=== PATIENT | male | born 1945 | race Caucasian/White ===

== ENCOUNTER 2017-07-14 08:36 | Outpatient (CLI) | payer MEDICARE | END 2017-07-14 08:37 | disposition home or self-care (01) | LOC: BICMRI 08:36 | PROVIDERS: ATTEND Family Medicine | DX: M54.5 Low back pain (principal); M48.061 Spinal stenosis, lumbar region without neurogenic claudication; M99.83 Other biomechanical lesions of lumbar region; M51.26 Other intervertebral disc displacement, lumbar region; M47.896 Other spondylosis, lumbar region | CPT/HCPCS: 72148 ==

== ENCOUNTER 2017-09-09 13:42 | Emergency (ER) | payer MEDICARE ==
--- NOTE | 2017-09-09 15:00 | RAD ---
FOUR VIEWS LUMBAR SPINE: INDICATION: Low back pain. COMPARISON: Prior exam dated 06/23/17. FINDINGS: There are 5 lumbar-type vertebrae. There is mild levoscoliosis of the stable that is stable. The mu ltilevel mild degenerative disk disease is stable. No malalignment is demonstrated. No acute fractu re is noted. Aortobiiliac endograft stent is visualized. There are scattered vascular calcification s. IMPRESSION: Stable mild to moderate multilevel spondylosis of the lumbar spine. POS: [facility]
[2017-09-09 16:29] LABS: #Eosinphils 0.3 thou/uL (0.0-0.7); #Lymphocytes 2.1 thou/uL (1.20-3.40); #Monocytes 0.7 thou/uL (0.11-0.59); #Neutrophils 9.2 thou/uL (1.40-6.50); %Basophils 0.3 % (0.0-1.0); %Eosinophils 2.4 % (0.0-10.0); %Lymphocytes 17.2 % (21.0-51.0); %Monocytes 5.5 % (0.0-10.0); %Neutrophils 74.5 % (42.0-75.0); Hemoglobin 15.6 g/dL (14.0-18.0); Mean Corpuscular HGB CONC 34.4 g/dL (32.0-36.0); Mean Corpuscular Hemoglobin 31.5 pg (27.0-31.0); Mean Corpuscular Volume 91.7 fL (78.0-98.0); Platelet Count 193 thou/uL (130-400); RBC Distribution Width 13.2 % (11.5-14.5); Red Blood Cell (RBC) Count 4.95 mill/uL (4.70-6.10); White Blood Cell (WBC) Count 12.4 thou/uL (4.8-10.8)
[2017-09-09 16:49] LABS: ALT (SGPT) 18 U/L (8-55); AST (SGOT) 15 U/L (5-34); Albumin 4.2 g/dL (3.4-4.8); Alkaline Phosphatase 81 U/L (40-150); Anion Gap 12 mmol/L (10-20); BUN (Urea Nitrogen) 23 mg/dL (8.4-25.7); Bilirubin, Total 0.8 mg/dL (0.2-1.2); Calc. Creatinine Clearance 0 mL/min (70-130); Calcium 9.6 mg/dL (7.8-10.44); Carbon Dioxide 27 mmol/L (23-31); Chloride 104 mmol/L (98-107); Estimated GFR-MDRD 66; Globulin 2.6 g/dL (2.4-3.5); Glucose 90 mg/dL (83-110); Potassium 4.6 mmol/L (3.5-5.1); Protein, Total 6.8 g/dL (5.8-8.1); Sodium 138 mmol/L (136-145)
--- NOTE | 2017-09-09 19:21 | MRI ---
MRI OF THE LUMBAR SPINE WITH AND WITHOUT CONTRAST: 09/09/17 HISTORY: Acute left leg weakness. Urinary incontinence. History of lung cancer. COMPARISON: 07/14/17. TECHNIQUE: MRI of the lumbar spine is performed with and without intravenous gadolinium administration. Multiseq uential, multiplanar imaging is performed. FINDINGS: Appropriate T1 marrow signal intensity of the lumbar vertebrae. Lumbar spine vertebral body height is maintained. There is no fracture. There are type I and type II Modic changes involving the posterior disc space at L4-5. No significant STIR hyperintensities to suggest vertebral body edema. No MR evid ence of ligamentous injury. There is anterolisthesis of L5 upon S1 due to degenerative change. On the postcontrast images, no obvious abnormal enhancement of the vertebral bodies. No abnormal enha ncement within the thecal sac including the cauda equina and conus medullaris. Symmetric signal inten sity of the psoas muscle. There are T2 hyperintensities involving the right renal cortex likely repre senting small cysts. The conus medullaris terminates at the T12-L1 disc space level. T11-T12 and T12-L1: No significant central canal stenosis or foraminal narrowing. L1-L2: Desiccation with mild loss of disc space height. No high grade central canal stenosis or high grade foraminal narrowing. Mild right foraminal narrowing is noted. L2-L3: Desiccation with mild loss of disc space height. Generalized disc bulge is present. No signifi cant central canal stenosis. Neural foramina are minimally narrowed bilaterally. L3-L4: Desiccation without significant loss of disc space height. There is a left subarticular disc b ulge. Disc material abuts but does not completely obscure the traversing left L4 nerve root. Mild lig amentum flavum thickening and facet hypertrophy. No significant central canal stenosis. Neural forami na are patent bilaterally. L4-L5: Desiccation with mild loss of disc space height. There is a generalized disc bulge, ligamentum flavum thickening and facet hypertrophy that results in mild to moderate central canal stenosis. Mod erate bilateral foraminal narrowing at L5-S1. Severe loss of disc space height. Nevertheless, no sign ificant central canal stenosis. Mild right foraminal narrowing. Left neural foramen is patent. IMPRESSION: 1. No evidence of a pathologic fracture. 2. No evidence of spinal metastases. 3. Degenerative changes of the lumbars spine as above. The overall degree of degenerative change is similar to the previous examination. Note, on the previous exam there is evidence of aneurysmal dilatation of the aorta. Evaluation of the current study is limited due to saturation band. Aorta can be further evaluated on a nonemergent bas is. Results of the study discussed with Marley Del Angel, 09/09/17 at 5:58 p.m. Code CR POS: [facility]
== END 2017-09-09 19:27 | disposition home or self-care (01) ==
LOC: ERS 13:42
DX: M54.5 Low back pain (principal); R53.1 Weakness; E78.5 Hyperlipidemia, unspecified; F32.9 Major depressive disorder, single episode, unspecified; F43.10 Post-traumatic stress disorder, unspecified; Z87.891 Personal history of nicotine dependence; Z79.899 Other long term (current) drug therapy; Z79.891 Long term (current) use of opiate analgesic; Z79.82 Long term (current) use of aspirin
CPT/HCPCS: 72100; 72158; 80053; 85025; 85652

== ENCOUNTER 2017-10-13 12:46 | Outpatient (CLI) | payer MEDICARE | END 2017-10-13 12:47 | disposition home or self-care (01) | LOC: BICCT 12:46 | PROVIDERS: ATTEND Family Medicine | DX: R09.89 Other specified symptoms and signs involving the circulatory and respiratory systems (principal); I71.4 Abdominal aortic aneurysm, without rupture; N28.1 Cyst of kidney, acquired; D35.01 Benign neoplasm of right adrenal gland; K57.30 Diverticulosis of large intestine without perforation or abscess without bleeding; T82.858A Stenosis of other vascular prosthetic devices, implants and grafts, initial encounter; I65.23 Occlusion and stenosis of bilateral carotid arteries | CPT/HCPCS: 74174; 82565; 93880 ==

== ENCOUNTER 2017-11-29 16:35 | Outpatient (CLI) | payer MEDICARE ==
[2017-11-29 17:11] LABS: Hemoglobin 14.9 g/dL (14.0-18.0); Mean Corpuscular HGB CONC 33.5 g/dL (32.0-36.0); Mean Corpuscular Hemoglobin 30.8 pg (27.0-31.0); Mean Corpuscular Volume 92.1 fL (78.0-98.0); Mean Platelet Volume 8.8 fL (7.4-10.4); Platelet Count 221 thou/uL (130-400); RBC Distribution Width 12.6 % (11.5-14.5); Red Blood Cell (RBC) Count 4.82 mill/uL (4.70-6.10); White Blood Cell (WBC) Count 10.4 thou/uL (4.8-10.8)
--- NOTE | 2017-11-29 17:11 | RAD ---
PA AND LATERAL CHEST: 11/29/17 HISTORY: Preop. Heart size is within normal limits. Postop sternotomy changes are seen. the lungs are clear of infilt rates. There is linear scarring in the lung bases. IMPRESSION: No active intrathoracic disease. POS: [facility]
[2017-11-29 17:40] LABS: Anion Gap 13 mmol/L (10-20); BUN (Urea Nitrogen) 15 mg/dL (8.4-25.7); Calc. Creatinine Clearance 0 mL/min (70-130); Calcium 9.6 mg/dL (7.8-10.44); Carbon Dioxide 26 mmol/L (23-31); Chloride 104 mmol/L (98-107); Estimated GFR-MDRD 64; Glucose 92 mg/dL (83-110); Potassium 4.4 mmol/L (3.5-5.1); Sodium 139 mmol/L (136-145)
--- NOTE | 2017-12-04 16:53 | EKG ---
Test Reason : Blood Pressure : / mmHG Vent. Rate : 062 BPM Atrial Rate : 062 BPM P-R Int : 152 ms QRS Dur : 100 ms QT Int : 430 ms P-R-T Axes : 050 055 033 degrees QTc Int : 436 ms Normal sinus rhythm Normal ECG No previous ECGs available Confirmed by CHRISTIE ROJAS (2) on 12/04/2017 4:53:08 PM Referred By: AR Confirmed By:CHRISTIE ROJAS
== END 2017-11-29 16:36 | disposition home or self-care (01) ==
LOC: LABBT 16:35
PROVIDERS: ATTEND Thoracic Surgery (Cardiothoracic Vascular Surgery)
DX: Z01.818 Encounter for other preprocedural examination (principal); I65.29 Occlusion and stenosis of unspecified carotid artery
CPT/HCPCS: 71046; 80048; 85027; 86850; 86900; 86901; 93005; 93010

== ENCOUNTER 2017-11-29 17:00 | Inpatient (IN) | payer MEDICARE ==
[2017-11-29 17:06] VITALS: BMI 30.1
[2017-11-30] MEDS ORDERED: Protamine Sulfate 50 MG/5 ML VIAL ONE (06:25)
[2017-11-30] MEDS ORDERED: Heparin 5,000 UNITS/ML VIAL ONE (06:25)
[2017-11-30] MEDS ORDERED: Fentanyl 100 MCG/2 ML VIAL ONE ×2 (06:43→10:11)
[2017-11-30] MEDS ORDERED: Remifentanil HCl 2 MG in Sodium Chloride 0.9% 100 ML IV SCH (06:45)
[2017-11-30] MEDS ORDERED: Phenylephrine HCL 10 MG/ML VIAL ONE (06:59)
[2017-11-30] MEDS ORDERED: PROVENTIL INHALER 6.7 G (200 INHALATIONS) INH PRN (07:26)
[2017-11-30] MEDS ORDERED: HYDROcodone/Acetaminophen 5/325 mg Tablet PO PRN ×2 (07:27)
[2017-11-30] MEDS ORDERED: hydrALAZINE 20 MG/ML VIAL SLOW IVP PRN (07:27)
[2017-11-30] MEDS ORDERED: Ondansetron HCl/PF 4 MG/2 ML Vial IVP PRN ×2 (07:27→10:18)
[2017-11-30] MEDS ORDERED: Acetaminophen 325 MG TAB PO PRN (07:27)
[2017-11-30] MEDS ORDERED: Spiriva 18 MCG CAP (Box of 5 Caps) INH SCH (09:00)
[2017-11-30] MEDS ORDERED: Escitalopram Oxalate 20 mg Tablet PO SCH (09:00)
[2017-11-30] MEDS ORDERED: Ubidecarenone 50 MG CAP PO SCH (09:00)
[2017-11-30] MEDS ORDERED: Clopidogrel Bisulfate 75 MG TAB PO SCH (09:00)
[2017-11-30] MEDS ORDERED: Dexamethasone 20 MG/5 ML VIAL ONE (09:13)
[2017-11-30] MEDS ORDERED: PROPOFOL 200 MG/20 ML VIAL ONE (09:13)
[2017-11-30] MEDS ORDERED: Ondansetron HCl/PF 4 MG/2 ML Vial ONE (09:13)
[2017-11-30] MEDS ORDERED: Glycopyrrolate 0.2 MG/ML 5 ML SYRINGE ONE (09:13)
[2017-11-30] MEDS ORDERED: PHENYLEPHRINE-NS 100 MCG/ML 10 ML SYRINGE ONE (09:13)
[2017-11-30] MEDS ORDERED: Metoprolol Tartrate 5 MG/5 ML VIAL ONE (09:13)
[2017-11-30] MEDS ORDERED: ePHEDrine/0.9% NaCl/PF SYRINGE 50 mg/10 ml ONE (09:13)
[2017-11-30] MEDS ORDERED: Heparin 10,000 UNITS/ 10 ML VIAL ONE (09:13)
[2017-11-30] MEDS ORDERED: Lidocaine 1% PF 5 ML VIAL ONE (09:13)
[2017-11-30] MEDS ORDERED: Promethazine HCl 25 MG/ML VIAL SLOW IVP PRN (10:18)
[2017-11-30] MEDS ORDERED: HYDROmorphone 2 MG/ML VIAL SLOW IVP PRN (10:18)
[2017-11-30] MEDS ORDERED: Ketorolac Tromethamine 30 MG/ML VIAL IVP PRN (10:18)
[2017-11-30] MEDS ORDERED: Promethazine HCl 25 MG/ML VIAL IM PRN (10:18)
[2017-11-30] MEDS ORDERED: Meperidine HCl/PF 25 MG/ML VIAL SLOW IVP PRN (10:18)
--- NOTE | 2017-11-30 11:27 | OP ---
DATE OF PROCEDURE: 11/30/2017 PROCEDURE PERFORMED: Right carotid endarterectomy. PREOPERATIVE DIAGNOSIS: Symptomatic right carotid stenosis. POSTOPERATIVE DIAGNOSIS: Symptomatic right carotid stenosis. SURGEON: Dr. Ra Norton ANESTHESIA: General endotracheal anesthesia. INDICATIONS: The patient is a 72-year-old man with extensive vascular history that includes coronary artery bypass grafting and a left carotid endarterectomy. He has recently had several episodes of l eft leg weakness and carotid ultrasonography showed a heavy plaque and modestly elevated velocities a nd ratios on the right side of his carotid system. His CTA suggested somewhere around a 60% stenosis with complex plaque in the right side. He is now taken to the operating room on aspirin and Plavix for endarterectomy. FINDINGS: Preshunt clamp time 7 minutes, shunt time 16 minutes. Clamp time 2 minutes. A large inte rnal carotid artery with brisk backflow bleeding, complex ulcerated plaque at the bulb and proximal i nternal carotid. NARRATIVE REPORT: After informed consent was obtained, the patient was taken to the operating room a nd placed in supine position on the operating table. After induction of general anesthesia, the angel ent's neck was extended and rotated towards the left. His right neck was then prepped and draped in sterile fashion. An oblique incision was made in the skin crease on the right neck using a scalpel a nd electrocautery. The dissection was carried through the subcutaneous tissue and platysma anteromed ial to the sternocleidomastoid muscle and internal jugular vein. The facial vein was ligated and div ided. The common carotid artery was dissected free from its sheath and the vagus nerve and looped wi th a vessel loop. The ansa cervicalis was draped across the carotid. It was divided to allow for ad equate exposure of the vessel. The dissection was carried distally along the course of the carotid, a relatively large jugular digastric lymph node that was obscuring the distal carotid system was exci sed and sent for permanent histologic examination, although clinically it appeared to be a normal lym ph node. The external carotid system was looped and massed with a vessel loop. After infiltrating t he periadventitial tissues of the bulb with lidocaine to guard against worsening of his existing sandra ycardia, the internal carotid system was then dissected free from the vagus nerve and isolated. The sling vessels were ligated and divided to allow for adequate exposure of the internal carotid beyond the level of the hypoglossal nerve and a digastric muscle. After adequate circulation of heparin, th e internal carotid, common carotid, and external carotid systems were sequentially occluded. A longi tudinal arteriotomy was made in the distal common carotid artery and extended proximally and distally with Cast scissors. The plaque was very hard and was complex with extensive ulcerations. An endar terectomy plane was developed at the bulb, plaque was transected at the common carotid level and brok en off distally in the internal carotid, was everted from the external carotid system, the distal fea ther was irrigated and inspected and tailored. The remainder of the endarterectomy bed was then forc efully irrigated with particular attention to the proximal transection point and distal feather. An intraluminal carotid shunt was inserted first distally in the internal carotid and proximally in the common carotid aspirating on the side port of the shunt for allowing antegrade flow through it into t he internal carotid system The endarterectomy bed was then serially irrigated and inspected and debri ded after having first control backbleeding around the internal limb of the shunt with a shunt clamp. The arteriotomy was then sewn from either apex with running 6-0 Prolene suture with about 0.5 cm of arteriotomy left and so the shunt was clamped and removed reestablishing vascular control in the rohini gin of the internal carotid on the common carotid with vessel loops. The remaining arteriotomy was s ewn and the vessels were forward and backbled to allow for flushing any air residual debris at the ar teriotomy or into the external carotid system. Suture line was secured and antegrade flows allowed f irst into the external carotid and then into the internal carotid. The wound was inspected for hemos tasis and 2 points of gross bleeding along the internal carotid suture line near the bulb were contro lled with [id number] sutures. The wound was then packed off and then reinspected. It was opted to do a half reversal of the heparin with protamine. Further inspection showed some diffuse oozing along the mid section of the internal carotid the suture line. This was oversewn with running 7-0 P rolene suture and then packed off again when hemostasis was adequate. The platysma was reapproximate d with running 3-0 Vicryl and the skin was closed with a running 5-0 Vicryl, subcuticular suture and Steri-Strips. The wound was dressed and the patient was taken to the to the recovery area in good co ndition.
[2017-11-30] MEDS: Sodium Chloride 0.9% 1,000 ML IV SCH ×2 (15:07→21:27)
[2017-11-30] MEDS: Carvedilol 25 MG TAB PO SCH ×2 (15:07→21:28)
[2017-11-30] MEDS ORDERED: Mometasone/Formoterol 120 PUFF INHALER INH PRN (18:30)
[2017-11-30] MEDS ORDERED: Temazepam 15 MG CAP PO SCH (21:00)
[2017-11-30] MEDS ORDERED: Atorvastatin Calcium 40 MG TAB PO SCH (21:00)
[2017-11-30] MEDS ORDERED: Naproxen 500 MG TAB PO SCH (21:00)
[2017-11-30] MEDS ORDERED: Latanoprost 0.005% Ophth Soln 2.5 ml Bottle EA EYE SCH (21:00)
[2017-12-01] MEDS: Sodium Chloride 0.9% 1,000 ML IV SCH (05:40)
[2017-12-01 06:04] VITALS: TEMP 98.1
--- NOTE | 2017-12-01 07:10 | DIS ---
DATE OF ADMISSION: 11/30/2017 DATE OF DISCHARGE: 12/01/2017 PRINCIPAL DIAGNOSIS: Right carotid stenosis. PROCEDURE PERFORMED: Right carotid endarterectomy. HISTORY OF PRESENT ILLNESS/HOSPITAL COURSE: The patient is a 72-year-old man who has previously unde rgone a left carotid endarterectomy who has had multiple episodes of left leg weakness often associat ed with paresthesias. Ultrasonography showed modestly abnormal velocities and ratios in that carotid , but had significant drop out suggesting echogenic plaque. A CT angiography demonstrated about 60% stenosis with dense and complex plaque at the carotid bulb. These episodes had happened on aspirin a nd Plavix and it was opted to treat this as a symptomatic carotid stenosis and he was taken to the op erating room on aspirin and Plavix for endarterectomy. He did extremely well overnight and today on postoperative day 1, he is still doing well, he has not had any hypertension. His tongue is midline. His voice is normal. His wound has minimal bruising and no significant swelling. He is able to br eathe and swallow without difficulty. His smile is symmetric and he is able to move all extremities normally. We will send him home now with a prescription for Vicodin as needed for pain and plan on s eeing him in the office in about 2 weeks' time.
== END 2017-12-01 07:20 | disposition home or self-care (01) | DRG 39 ==
LOC: SURG A 11-30 06:03 → CCU 11-30 12:38
PROVIDERS: ADMIT Thoracic Surgery (Cardiothoracic Vascular Surgery); ATTEND Thoracic Surgery (Cardiothoracic Vascular Surgery)
PROC: 03CK0ZZ Extirpation of Matter from Right Internal Carotid Artery, Open Approach (ICD-10-PCS; principal; 2017-11-30)
DX: I65.21 Occlusion and stenosis of right carotid artery (principal); R20.2 Paresthesia of skin; R53.1 Weakness; Z95.1 Presence of aortocoronary bypass graft; Z95.5 Presence of coronary angioplasty implant and graft; Z79.899 Other long term (current) drug therapy; E66.9 Obesity, unspecified; Z68.30 Body mass index [BMI] 30.0-30.9, adult; Z79.82 Long term (current) use of aspirin
CPT/HCPCS: 36415; 71046; 80048; 85027; 86850; 86900; 86901; 88305; 93005; 93010; 94640; A4216; J1100; J1642; J1644; J2001; J2370; J2405; J2704; J2720; J3010; J3490; J7050; J7620

== ENCOUNTER 2018-10-04 17:00 | Outpatient (CLI) | payer MEDICARE | END 2018-10-04 17:01 | disposition home or self-care (01) | LOC: SLEEPLAB 17:00 | PROVIDERS: ATTEND Internal Medicine | DX: G47.33 Obstructive sleep apnea (adult) (pediatric) (principal); R53.83 Other fatigue; E66.9 Obesity, unspecified; K21.9 Gastro-esophageal reflux disease without esophagitis; F32.9 Major depressive disorder, single episode, unspecified; R06.83 Snoring; I25.10 Atherosclerotic heart disease of native coronary artery without angina pectoris; J44.9 Chronic obstructive pulmonary disease, unspecified | CPT/HCPCS: 95806 ==

== ENCOUNTER 2018-12-12 13:36 | Outpatient (CLI) | payer MEDICARE | END 2018-12-12 13:37 | disposition home or self-care (01) | LOC: ULT 13:36 | PROVIDERS: ATTEND Family Medicine | DX: M79.604 Pain in right leg (principal); M79.605 Pain in left leg; I70.229 Atherosclerosis of native arteries of extremities with rest pain, unspecified extremity | CPT/HCPCS: 93922 ==

== ENCOUNTER 2019-01-19 08:24 | Outpatient (CLI) | payer MEDICARE ==
--- NOTE | 2019-01-19 09:31 | CT ---
CT angiogram abdomen with and without contrast CT angiogram pelvis with and without contrast: 01/19/2019 HISTORY: 73-year-old male with abdominal aortic aneurysm status post endograft treatment. TECHNIQUE: Precontrast scan and arterial phase postcontrast scan from the lung bases 2 bilateral femoral shafts. Coronal and sagittal 3-D MIP reconstructions. FINDINGS: There is a fusiform infrarenal abdominal aortic aneurysm which measures approximately 5.3 x 4.2 cm at the L3-4 level. It contains an endograft. There is no evidence of endoleak. Evaluation of intra-abdominal organs is limited by the fact that the postcontrast scan is arterial phase only. Gwendolyn ral small hypodensities in the bilateral renal parenchyma are present. At least the majority of them are cysts. The larger ones on the order of 2 cm. No hydronephrosis. No gross abnormality identif ied involving liver, pancreas, spleen, urinary bladder. Large number of diverticula throughout the descending and sigmoid colon without diverticulitis. No small bowel dilation. No consolidation or ple ural effusion at lung bases. No ascites or pneumoperitoneum. 1.5 x 1.5 cm right adrenal adenoma. 1 cm thickening of left adrenal gland, probably another adenoma. Extensive atherosclerotic calcification of abdominal aorta and its major branches. High-grade stenosi s, severe, at origin of SMA. At the distal edge of the left common iliac artery limb of the endograft, there is focal short segment severe stenosis. IMPRESSION: 1. Infrarenal abdominal aortic aneurysm treated with endograft. 2. No endoleak identified. 3. Just distal to the edge of the left common iliac artery limb of the endograft, there is focal gwendolyn re stenosis, slightly proximal to the bifurcation of the left common iliac artery..
[2019-01-19] MEDS ORDERED: Iopamidol 370 76% 100 ML VIAL ONE (16:17)
== END 2019-01-19 08:25 | disposition home or self-care (01) ==
LOC: CT 08:24
PROVIDERS: ATTEND Thoracic Surgery (Cardiothoracic Vascular Surgery)
DX: I71.4 Abdominal aortic aneurysm, without rupture (principal); M48.00 Spinal stenosis, site unspecified
CPT/HCPCS: 74174; Q9967